=== PATIENT | male | born 1995 | race Caucasian/White ===

== ENCOUNTER 2021-05-09 01:33 | Emergency (ER) | payer OTHER ==
[~2021-05-09] VITALS: Ht 165.1 cm; Wt 65.0 kg
[~2021-05-09 01:33] MED LIST: NOCURR
[2021-05-09] MEDS ORDERED: FLUORESCEIN SODIUM 1 MG STRIP OU ONE (02:15)
[2021-05-09] MEDS ORDERED: PROPARACAINE HCL 0.5% 15 ML OPHTHALMIC SOLUTION OU ONE (02:15)
[2021-05-09 02:30] VITALS: BP 119/65
[2021-05-09] MEDS ORDERED: OFLOXACIN 0.3% 5 ML OPHTHALMIC SOLUTION OU ONE (02:30)
== END 2021-05-09 03:09 | disposition home or self-care (01) ==
LOC: EMS 01:42
DX: H10.9 Unspecified conjunctivitis (principal)
CPT/HCPCS: 99283